=== PATIENT | male | born 1995 | race Caucasian/White ===

== ENCOUNTER 2018-04-21 13:52 | Emergency (ER) | payer OTHER ==
[~2018-04-21] VITALS: Ht 182.9 cm; Wt 72.6 kg
[2018-04-21] MEDS ORDERED: ONDA4ODT MM (14:56)
[2018-04-21] MEDS ORDERED: ALBU90OI INH (14:56)
[2018-04-21] MEDS ORDERED: PENVK500 PO (14:57)
== END 2018-04-21 15:06 | disposition home or self-care (01) ==
LOC: ER 13:52
DX: K04.01 Reversible pulpitis (principal); K02.9 Dental caries, unspecified; J06.9 Acute upper respiratory infection, unspecified
CPT/HCPCS: 71046; 99283-25